=== PATIENT | female | born 1950 | race Caucasian/White ===

== ENCOUNTER → 2016-09-02 | Outpatient (REF) | payer MEDICARE, BC, OTHER ==
[2016-09-02 17:16] LABS: CALCIUM LEVEL 10.5 MG/DL (8.8-10.2); PHOSPHORUS LEVEL 3.8 MG/DL (2.5-4.9)
== END | disposition home or self-care (01) ==
LOC: M LABDRAW1 15:26
PROVIDERS: ATTEND Internal Medicine Endocrinology, Diabetes & Metabolism
DX: E83.52 Hypercalcemia (principal)

== ENCOUNTER → 2016-09-17 | Outpatient (CLI) | payer MEDICARE, BC, OTHER ==
--- NOTE | 2016-09-23 06:59 | RADONC ---
RADIATION ONCOLOGY FOLLOWUP NOTE DATE: 09/17/2016 CHART NUMBER: [id number]. DIAGNOSIS: Right breast cancer. STAGE: IA, [id number]. ECOG PERFORMANCE STATUS: 0 FOLLOWUP NOTE: Ms. Cox is a delightful 66-year-old white female with the diagnosis of a stage IA, [id number], moderately differentiated infiltrating ductal carcinoma of the right breast who is presenting to us today for routine followup visit 7 months post completion of external beam radiation therapy. The patient presents today reporting that she is doing quite well with no complaints at this time related to her radiation therapy or disease. She has no breast or bone pain. REVIEW OF SYSTEMS: The patient's review of systems is noncontributory. She denies nausea, vomiting, fevers, chills, night sweats, diplopia, headaches, anxiety or depression, anorexia, weight loss, visual disturbances, chest pain, urinary or bowel difficulties, bone pain, or neurological problems. PHYSICAL EXAMINATION: The patient is a well-developed, well-nourished white female in no acute distress. HEENT exam is normocephalic, atraumatic. Extraocular movements are intact. There is no palpable cervical, supraclavicular, infraclavicular, axillary, or inguinal lymphadenopathy present. Lungs are clear to auscultation and percussion. Heart has a regular rate and rhythm. Abdomen is benign with no hepatosplenomegaly, masses, or tenderness. Breast examination reveals no masses or discharge bilaterally. Skeletal examination reveals no tenderness to pressure or percussion of the bony skeleton. Extremities reveal no clubbing, cyanosis, or edema. Neurologic exam is grossly intact, as is the remainder of the physical examination. ASSESSMENT: The patient is clinically TYREL at this time and will be seen by me again in 6 months for further followup. She will also continue to be followed by her other physicians as well. cc: Talat Nance MD *Chelsea Mallory MD *SHABANA Gatica
== END ==
LOC: M ONCR 10:44
PROVIDERS: ATTEND Radiology Radiation Oncology
DX: C50.811 Malignant neoplasm of overlapping sites of right female breast (principal)

== ENCOUNTER → 2017-03-25 | Outpatient (CLI) | payer MEDICARE, BC, OTHER ==
--- NOTE | 2017-03-25 09:36 | RADONC ---
RADIATION ONCOLOGY FOLLOWUP NOTE DATE: 03/25/2017 CHART NUMBER: [id number] DIAGNOSIS: Right breast cancer. STAGE: IA, [id number]. ECOG PERFORMANCE STATU: 0. FOLLOWUP NOTE: Ms. Cox is a very pleasant [age]-year-old white female with the diagnosis of a stage IA, A3kP1N2, moderately differentiated infiltrating ductal carcinoma right breast who is presenting to us today for routine followup visit 1 year and 1 month post completion of external beam radiation therapy. The patient presents today reporting that she is doing quite well with no complaints at this time related to her radiation therapy or disease. She has no breast or bone pain. The patient's review of systems is noncontributory. She denies nausea, vomiting, fevers, chills, night sweats, diplopia, headaches, anxiety or depression, anorexia, weight loss, visual disturbances, chest pain, urinary or bowel difficulties, bone pain, or neurological problems. PHYSICAL EXAMINATION: The patient is a well-developed, well-nourished, female in no acute distress. HEENT exam is normocephalic, atraumatic. Extraocular movements are intact. There is no palpable cervical, supraclavicular, infraclavicular, axillary, or inguinal lymphadenopathy present. Lungs are clear to auscultation and percussion. Heart has a regular rate and rhythm. Abdomen is benign with no hepatosplenomegaly, masses, or tenderness. Breast examination reveals no masses or discharge bilaterally. Skeletal examination reveals no tenderness to pressure or percussion of the bony skeleton. Extremities reveal no clubbing, cyanosis, or edema. Neurologic exam is grossly intact, as is the remainder of the physical examination. ASSESSMENT: The patient is clinically TYREL at this time and will be seen by us again in 6 months for further followup. She will also continue be followed by her other physicians as well. cc: MD Chelsea Grossman MD Michael Hinman, PA
== END ==
LOC: M ONCR 08:47
PROVIDERS: ATTEND Radiology Radiation Oncology
DX: C50.811 Malignant neoplasm of overlapping sites of right female breast (principal)

== ENCOUNTER → 2017-05-07 | Outpatient (REF) | payer MEDICARE, BC, OTHER | LOC: M LAB REF 12:59 | PROVIDERS: ATTEND Internal Medicine Medical Oncology | DX: C50.919 Malignant neoplasm of unspecified site of unspecified female breast (principal) ==

== ENCOUNTER → 2017-09-16 | Outpatient (CLI) | payer MEDICARE, BC, OTHER | LOC: M ONCR 09:12 | DX: C50.811 Malignant neoplasm of overlapping sites of right female breast (principal) | CPT/HCPCS: G0463 ==

== ENCOUNTER → 2017-11-05 | Outpatient (REF) | payer MEDICARE, BC, OTHER ==
[2017-11-05 13:55] LABS: TOTAL 25(OH) VITAMIN D 51.8 NG/ML (30.0-100.0)
== END ==
LOC: M LAB REF 13:23
DX: C50.919 Malignant neoplasm of unspecified site of unspecified female breast (principal)
CPT/HCPCS: 82306

== ENCOUNTER → 2018-03-24 | Outpatient (CLI) | payer MEDICARE, BC, OTHER | LOC: M ONCR 09:26 | DX: C50.811 Malignant neoplasm of overlapping sites of right female breast (principal) | CPT/HCPCS: G0463 ==

== ENCOUNTER → 2018-09-29 | Outpatient (CLI) | payer MEDICARE, BC, OTHER ==
[~2018-09-29] MED LIST: AMLO5TAB6 PO; ANAS1TAB2 PO; ASPI1TAB PO; ATOR1TAB21 PO; OLME40TA PO; VITA500T PO
--- NOTE | 2018-10-04 10:13 | RADONC ---
RADIATION ONCOLOGY FOLLOWUP NOTE DATE: 09/29/2018 CHART NUMBER: [id number] DIAGNOSIS: Right breast cancer. STAGE: Stage I A, [id number]. ECOG PERFORMANCE STATUS: 0. FOLLOWUP NOTE: Ms. Cox is a very pleasant 69-year-old white female with the diagnosis of a stage I A, N0xC0P3, moderately differentiated infiltrating ductal carcinoma of the right breast who is presenting to us today for routine followup visit 2 years and 8 months post completion of external beam radiation therapy. The patient presents today reporting that she is doing quite well with no complaints at this time related to her radiation therapy or disease. She has no breast or bone pain. The patient's review of systems is noncontributory. Denies nausea, vomiting, fevers, chills, night sweats, diplopia, headaches, anxiety or depression, anorexia, weight loss, visual disturbances, chest pain, urinary or bowel difficulties, bone pain, or neurological problems. PHYSICAL EXAMINATION: The patient is a well-developed, well-nourished female in no acute distress. HEENT exam is normocephalic, atraumatic. Extraocular movements are intact. There is no palpable cervical, supraclavicular, infraclavicular, axillary, or inguinal lymphadenopathy present. Lungs are clear to auscultation and percussion. Heart has a regular rate and rhythm. Abdomen is benign with no hepatosplenomegaly, masses, or tenderness. Breast examination reveals no masses or discharge bilaterally. Skeletal examination reveals no tenderness to pressure or percussion of the bony skeleton. Extremities reveal no clubbing, cyanosis, or edema. Neurologic exam is grossly intact, as is the remainder of the physical examination. ASSESSMENT: The patient is clinically TYREL at this time. She is being followed closely by her other physicians and therefore I have discharged her from our followup except on an as needed basis. cc: MD Ricci Sky PA Sara McGee, MD
== END ==
LOC: M ONCR 08:56
PROVIDERS: ATTEND Radiology Radiation Oncology
DX: C50.811 Malignant neoplasm of overlapping sites of right female breast (principal)

== ENCOUNTER → 2020-04-24 | Outpatient (REF) | payer MEDICARE, BC, OTHER ==
[~2020-04-24] MED LIST changes: +AMLO1TAB24 PO; -AMLO5TAB6 PO; -ASPI1TAB PO; +ASPI81TA26 PO; +CALC1TAB30 PO; +CENT1TAB PO; +D31000TA2 PO; +NIACCAP PO; +VITA-243 PO; -VITA500T PO; +VITA500T40 PO
[2020-04-24 17:36] LABS: PERCENT SATURATION 17.6 % (13.2-45.0)
[2020-04-24 17:46] LABS: TOTAL PROTEIN,RANDOM URINE 35.9 MG/DL (0.0-12.0)
[2020-04-24 17:50] LABS: AMORPHOUS SEDIMENT SMALL (NEGATIVE); BACTERIA, URINE AUTO 1+ (NEGATIVE); CALCIUM OXALATE CRYSTALS LARGE; MUCUS, URINE SMALL (NEGATIVE); RBC, URINE AUTO 9 /HPF (0-3); SQUAMOUS EPITHELIAL CELL UR AU 0 /HPF (0-6); WBC, URINE AUTO 132 /HPF (0-3)
== END ==
LOC: M LAB REF 17:04
PROVIDERS: ATTEND Internal Medicine Nephrology
DX: D50.9 Iron deficiency anemia, unspecified (principal); N17.9 Acute kidney failure, unspecified; Z79.899 Other long term (current) drug therapy

== ENCOUNTER → 2021-02-21 | Outpatient (CLI) | payer MEDICARE, BC, OTHER ==
[~2021-02-21] MED LIST changes: +ALEN70TA82 PO
--- NOTE | 2021-02-21 10:19 | REP ---
INDICATION: ABNORMAL EKG MURMUR -OCC HEAVINESS CHEST. COMPARISON: Comparison chest x-ray April 14, 2013. TECHNIQUE: Two views.. FINDINGS: The lungs are hyperinflated but free of infiltrate. Pleural angles are sharp. Cardiomediastinal silhouette is unremarkable. There is no acute bony abnormality. Pulmonary vasculature is not increased. IMPRESSION: Hyperinflation. Otherwise no acute disease.. <Electronically signed by Tarik Woodall > 02/21/21 0643
== END ==
LOC: M WUC 10:01
PROVIDERS: ATTEND Physician Assistant
DX: R01.1 Cardiac murmur, unspecified (principal); R94.31 Abnormal electrocardiogram [ECG] [EKG]

== ENCOUNTER → 2021-03-05 | Outpatient (REF) | payer MEDICARE, BC, OTHER ==
[2021-03-05 18:25] LABS: FERRITIN 176 NG/ML (8-252); IRON (FE) 20 UG/DL (50-170); MAGNESIUM LEVEL 2.4 MG/DL (1.8-2.4); PERCENT SATURATION 7.7 % (13.2-45.0); TOTAL IRON BINDING CAPACITY 260 UG/DL (250-450)
[2021-03-05 18:26] LABS: VITAMIN B12 LEVEL 1900 PG/ML
[2021-03-05 18:35] LABS: FOLATE > 24.0 NG/ML
== END ==
LOC: M LAB REF 16:40
PROVIDERS: ATTEND Internal Medicine Nephrology
DX: D50.9 Iron deficiency anemia, unspecified (principal); N39.0 Urinary tract infection, site not specified; D63.1 Anemia in chronic kidney disease; E83.42 Hypomagnesemia; N18.2 Chronic kidney disease, stage 2 (mild)

== ENCOUNTER → 2021-03-20 | Outpatient (CLI) | payer MEDICARE, BC, OTHER ==
--- NOTE | 2021-03-20 10:10 | REP ---
INDICATION: CALCULUS OF KIDNEY, RENAL FAILURE. COMPARISON: CT 11/23/2015. TECHNIQUE: Real-time sonographic evaluation of the kidneys is performed. FINDINGS: Renal cortical echogenicity pattern is normal bilaterally and contours are smooth. There is moderate right hydronephrosis. There is a calculus in the mid right ureter measuring 18 x 8 x 7 millimeters. Multiple intrarenal calculi are seen bilaterally. Largest on the right is in the lower pole measuring 5 millimeters, the largest on the left is in the upper pole and measures 6 millimeters. There is no left hydronephrosis. The right kidney measures 11.0 x 5.9 x 4.2 cm. Left renal dimensions are 9.4 x 4.6 x 4.7 cm. The urinary bladder is unremarkable. Ureteral jets could not be visualized with Doppler color evaluation. IMPRESSION: Bilateral subcentimeter intrarenal calculi. There is moderate right hydronephrosis. There is a calculus in the mid right ureter 18 x 8 x 7 millimeters. <Electronically signed by Prasanth Stafford > 03/20/21 1007
== END ==
LOC: M RAD 09:26
PROVIDERS: ATTEND Internal Medicine Nephrology
DX: N17.9 Acute kidney failure, unspecified (principal); N20.0 Calculus of kidney

== ENCOUNTER → 2021-03-29 | Outpatient (CLI) | payer MEDICARE, BC, OTHER ==
[2021-03-29 07:01] LABS: HEMATOCRIT 32.3 % (36.0-47.0); HEMOGLOBIN 10.2 g/dl (12.0-15.5); MEAN CORPUSCULAR HEMOGLOBIN 31.3 pg (27.0-33.0); MEAN CORPUSCULAR HGB CONC 31.6 g/dl (32.0-36.5); MEAN CORPUSCULAR VOLUME 99.1 fl (80.0-96.0); PLATELET COUNT, AUTOMATED 309 10^3/uL (150-450); RED BLOOD COUNT 3.26 10^6/uL (4.00-5.40); WHITE BLOOD COUNT 8.9 10^3/uL (4.0-10.0)
[2021-03-29 07:03] LABS: APPEARANCE, URINE HAZY (CLEAR); BACTERIA, URINE AUTO 1+ (NEGATIVE); BILIRUBIN, URINE AUTO NEGATIVE (NEGATIVE); BLOOD, URINE BLOOD 1+ (NEGATIVE); COLOR, URINE YELLOW (YELLOW); GLUCOSE, URINE (UA) AUTO NEGATIVE (NEGATIVE); KETONE, URINE AUTO NEGATIVE (NEGATIVE); LEUKOCYTE ESTERASE, URINE AUTO 3+ (NEGATIVE); MUCUS, URINE SMALL (NEGATIVE); NITRITE, URINE AUTO NEGATIVE (NEGATIVE); PROTEIN, URINE AUTO NEGATIVE (NEGATIVE); RBC, URINE AUTO 7 /HPF (0-3); SPECIFIC GRAVITY URINE AUTO 1.006 (1.002-1.035); SQUAMOUS EPITHELIAL CELL UR AU 0 /HPF (0-6); UROBILINOGEN, URINE AUTO 0.2 mg/dL (0.0-2.0); WBC, URINE AUTO 62 /HPF (0-3)
[2021-03-29 07:16] LABS: INR 1.03; PROTHROMBIN TIME 13.9 SECONDS (12.7-14.5)
[2021-03-29 07:17] LABS: PARTIAL THROMBOPLASTIN TIME 36.7 SECONDS (25.9-37.0)
[2021-03-29 07:28] LABS: CALCIUM LEVEL 10.2 MG/DL (8.8-10.2); CREATININE FOR GFR 1.56 MG/DL (0.55-1.30); GLOMERULAR FILTRATION RATE 34.9 (>39)
--- NOTE | 2021-03-29 08:16 | REP ---
INDICATION: PRE OP TESTING PT HAS LABS AND EKG FIRST COMPARISON: 02/21/2021 TECHNIQUE: PA and lateral. FINDINGS: The mediastinum and cardiac silhouette are normal. The lung denney are clear and without acute consolidation, effusion, or pneumothorax. The skeletal structures are intact and normal. IMPRESSION: No acute cardiopulmonary process. <Electronically signed by Semaj Stockton > 03/29/21 0821
--- NOTE | 2021-03-29 09:05 | ECGEPIP ---
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
== END ==
LOC: M LAB 06:18
PROVIDERS: ATTEND Nurse Practitioner Women's Health
DX: Z01.812 Encounter for preprocedural laboratory examination (principal); Z20.822 Contact with and (suspected) exposure to COVID-19; Z79.899 Other long term (current) drug therapy

== ENCOUNTER → 2021-04-01 | Outpatient (CLI) | payer MEDICARE, BC, OTHER ==
--- NOTE | 2021-04-01 13:36 | REP ---
INDICATION: URETERAL STONE W/ HYDRONEPHROSIS COMPARISON: Comparison CT study November 23, 2015. TECHNIQUE: Helical scanning is acquired and 3 mm axial images were reformatted. Coronal and sagittal MPR images were generated and reviewed. FINDINGS: Preliminary digital enterprise mobility architect radiograph demonstrates an unremarkable bowel gas pattern. There is a levoconvex lumbar scoliotic curvature. Gallstones are noted projecting in the right upper quadrant. On axial CT images, there is a 1.4 cm densely calcified benign granuloma in the right lower lobe. There are 2 other nodules 1 of which is calcified in the right lower lobe. The noncalcified nodule measures 8 mm in greatest diameter. The left lung base is clear. There is no evidence of pleural effusion or upper abdominal ascites. The liver and the spleen are normal in size homogeneous in texture. There are densely calcified gallstones in the dependent portion the gallbladder. In addition, there is a focal calcification which appears to be within the lumen of the common bile duct consistent with choledocholithiasis. No abnormality is noted in the pancreas. Normal adrenal glands are observed. There is bilateral intrarenal nephrolithiasis with multiple stones in each kidney at the corticomedullary junction consistent with collecting system calculi. There is moderate to marked right-sided hydronephrosis. The right kidney is enlarged in association with this. The right ureter is moderately dilated and can be traced to the superior aspect of the right true pelvis where there is a 13 mm obstructing ureteral calculus in the ureter. No bladder calculus is seen. No left ureteral stone is seen. No left-sided hydronephrosis is noted. No uterine or ovarian abnormality is seen. The appendix is surgically absent. IMPRESSION: 1. Moderate to marked right-sided hydronephrosis due to a large, 13 mm, obstructing calculus in the right the mid to distal ureter. 2. Bilateral numerous intrarenal nephrolithiasis. 3. Cholelithiasis. 4. Choledocholithiasis suspected with mildly prominent common bile duct. Granulomatous nodules in the right lower lobe. These are all present and visible in retrospect on the November 23, 2015 prior study and are felt to be benign. <Electronically signed by Tarik Woodall > 04/01/21 [id number]
== END ==
LOC: M RAD 10:54
PROVIDERS: ATTEND Nurse Practitioner Women's Health
DX: N20.1 Calculus of ureter (principal)

== ENCOUNTER → 2021-05-01 | Outpatient (CLI) | payer MEDICARE, BC, OTHER ==
[~2021-05-01] MED LIST changes: +FERR32TA PO
--- NOTE | 2021-05-01 08:12 | REP ---
INDICATION: OTH SYMPTOMS AND SIGNS INVOLVING THE CIRC AND RESP COMPARISON: None. TECHNIQUE: Real-time ultrasound evaluation and duplex Doppler interrogation of the extracranial carotid vasculature is performed. FINDINGS: Antegrade flow is observed in both vertebral arteries. Right carotid: The right common carotid artery shows diffuse intimal thickening but is otherwise unremarkable. There ismild mixed plaquing in the right carotid bulb and proximal ICA on two-dimensional scanning. Color flow and spectral Doppler interrogation are unremarkable on the right. Velocity chart right carotid: Right CCA PSV: 56 cm/S Right ICA PSV: 66 cm/S Right ICA EDV: 24 cm/S Right ECA PSV: 56 cm/S Right ICA/CCA ratio: 1.2 Left carotid: The left common carotid artery shows diffuse intimal thickening but is otherwise unremarkable. There is mild mixed plaquing in the left carotid bulb and proximal ICA on two-dimensional scanning. Color flow and spectral Doppler interrogation are unremarkable on the left. Velocity chart left carotid: Left CCA PSV: 71 cm/S Left ICA PSV: 81 cm/S Left ICA EDV: 20 cm/S Left ECA PSV: 82 cm/S Left ICA/CCA ratio: 1.2 IMPRESSION: Less than 50% category narrowing in the right internal carotid artery by Doppler velocity criteria. Less than 50% category narrowing in the left ICA by Doppler velocity criteria. <Electronically signed by Tarik Woodall > 05/01/21 [id number]
== END ==
LOC: M RAD 07:11
PROVIDERS: ATTEND Internal Medicine Cardiovascular Disease
DX: R09.89 Other specified symptoms and signs involving the circulatory and respiratory systems (principal)

== ENCOUNTER → 2021-05-27 | Outpatient (CLI) | payer MEDICARE, BC, OTHER | LOC: M LABSMTC 10:43 | PROVIDERS: ATTEND Anesthesiology | DX: Z11.52 Encounter for screening for COVID-19 (principal); Z20.822 Contact with and (suspected) exposure to COVID-19 ==

== ENCOUNTER → 2021-05-28 | Outpatient (CLI) | payer MEDICARE, BC, OTHER | LOC: M PLALAB 11:46 | PROVIDERS: ATTEND Urology | DX: N13.2 Hydronephrosis with renal and ureteral calculous obstruction (principal); N39.0 Urinary tract infection, site not specified ==

== ENCOUNTER 2021-05-31 06:10 | Day surgery (SDC) | payer MEDICARE, BC, OTHER ==
[~2021-05-31] VITALS: Ht 165.1 cm; Wt 51.7 kg
[2021-05-31] MEDS ORDERED: LR 1,000 ML IV ONE (06:30)
[2021-05-31] MEDS ORDERED: fentaNYL 100 MCG/2 ML INJECTION (J3010) As Ordered ONE (07:02)
[2021-05-31] MEDS ORDERED: CONRAY-60 60% 50ML VIAL (Q9961) As Ordered ONE (07:12)
[2021-05-31] MEDS ORDERED: LIDOCAINE 2% 100MG/5ML SDV (FOR ANES.) As Ordered ONE (07:13)
[2021-05-31] MEDS ORDERED: propofoL 200 MG/20 ML VIAL As Ordered ONE (07:13)
[2021-05-31] MEDS ORDERED: ONDANSETRON 4MG/2ML VIAL As Ordered ONE (07:14)
[2021-05-31] MEDS ORDERED: dexameTHASONE 4 MG/ML 1ML VIAL (J1100 PER 1MG) As Ordered ONE (07:14)
[2021-05-31] MEDS ORDERED: ceFAZolin 2 GM/D5W 50 ML IV BAG (J0690 PER 500MG) As Ordered ONE (07:44)
[2021-05-31] MEDS ORDERED: ACETAMINOPHEN 1000MG 100ML IV BTL (OFIRMEV) (J0131 PER 10MG) As Ordered ONE (08:34)
[2021-05-31] MEDS ORDERED: PERCOCET 5MG/325MG TAB PO PRN (09:40)
[2021-05-31] MEDS ORDERED: oxyCODONE 5MG TAB PO PRN (09:40)
[2021-05-31] MEDS ORDERED: fentaNYL 100 MCG/2 ML INJECTION (J3010) IV PRN (09:40)
[2021-05-31] MEDS ORDERED: ONDANSETRON 4MG/2ML VIAL IV PRN (09:40)
[2021-05-31] MEDS ORDERED: LR 1,000 ML IV SCH (09:40)
--- NOTE | 2021-05-31 09:41 | RO ---
OPERATIVE NOTE DATE OF OPERATION: 05/31/2021 PREOPERATIVE DIAGNOSIS: Right kidney and ureteral stones. POSTOPERATIVE DIAGNOSIS: Right kidney and ureteral stones. PROCEDURES: 1. Cystoscopy. 2. Right ureteroscopy with laser lithotripsy and basket extraction of stones. 3. Right retrograde pyelogram with intraoperative interpretative images. 4. Right ureteral stent placement. SURGEON: José Miguel Moore MD. MOLECULAR GENETIC PATHOLOGIST: None. ANESTHESIA: General. OPERATIVE INDICATIONS: This is a 71-year-old female who was found to have an obstructing approximately 1.2-cm distal right ureteral stone, as well as a few stones inside her kidney. She was brought to the operating room today for treatment. DESCRIPTION OF PROCEDURE: The patient was brought to the operating room and general anesthesia was induced. Culture-specific antibiotics were infused. She was then placed in the dorsal lithotomy position, prepped, and draped in the usual sterile fashion. A rigid cystoscope was inserted into the urethral meatus and advanced into the bladder. A guidewire was advanced up the right collecting system. I went up the right collecting system with a short semi-rigid ureteroscope. Within the distal ureter, the large stone was seen impacted. The stone was fragmented into smaller pieces using a 272 micron laser fiber. Than all of the fragments were removed using a basket. Once I was satisfied that all of the stone fragments were removed from the ureter, a ureteral access sheath was advanced up the right collecting system. I went up the access sheath with a flexible ureteroscope and examined the right kidney thoroughly. The kidney was severely dilated. There was a lot of debris inside the kidney. I was able to find a few small stones, each measuring around 3-4 mm in the middle and lower pole calices. All of the stones were removed using a basket. Once satisfied that all of the stones were removed, a retrograde pyelogram was performed and notable for [id number] right hydronephrosis with no extravasation. I then withdrew the ureteroscope along with the access sheath and no additional stones were seen inside the ureter. I utilized the guidewire to advance a 7-Frisian x 22-32 cm JJ ureteral stent up the right collecting system. The wire was removed and there were adequate curls of the stent in the right renal pelvis and in the bladder. The bladder was then emptied of all fluid. This marked the conclusion of the procedure. The patient was taken out of the dorsal lithotomy position, awakened from anesthesia, and transferred to the recovery room in stable condition. ESTIMATED BLOOD LOSS: 10 mL. COMPLICATIONS: None. SPECIMEN: Kidney stone fragments. PLAN: The patient will follow up in the Urology Clinic in a few weeks for stent removal. SAPNA
[2021-05-31 10:25] VITALS: BP 160/70
--- NOTE | 2021-05-31 11:24 | REP ---
INDICATION: RIGHT CYSTO, URETERAL STENT PLACEMENT. COMPARISON: None. TECHNIQUE: Two C-arm views abdomen and pelvis FINDINGS: Contrast partially opacifies the right pelvocaliceal system. A right ureteral stent is placed, the proximal end is coiled in the right renal pelvis and the distal end in the urinary bladder. IMPRESSION: 25 seconds fluoroscopy time utilized. <Electronically signed by Prasanth Stafford > 05/31/21 [id number]
[2021-06-05 14:09] LABS: CA Oxalate Dihy 50 % (.); Ca Ox Monohydrate 10 % (.); Size 6x5 mm (.)
== END 2021-05-31 10:40 | disposition home or self-care (01) ==
LOC: M SDC 06:10
PROVIDERS: ATTEND Urology
DX: N20.2 Calculus of kidney with calculus of ureter (principal); I11.9 Hypertensive heart disease without heart failure; R01.1 Cardiac murmur, unspecified; R42 Dizziness and giddiness; R94.31 Abnormal electrocardiogram [ECG] [EKG]; I35.0 Nonrheumatic aortic (valve) stenosis; R09.89 Other specified symptoms and signs involving the circulatory and respiratory systems; D64.9 Anemia, unspecified; Z85.3 Personal history of malignant neoplasm of breast; N18.9 Chronic kidney disease, unspecified; Z79.899 Other long term (current) drug therapy; Z79.82 Long term (current) use of aspirin; Z91.040 Latex allergy status; Z88.0 Allergy status to penicillin
CPT/HCPCS: 52356; 74420; 82365; 88300; C1769; C1894; C2617; J0131; J0690; J1100; J2405; J3010; Q9961

== ENCOUNTER → 2021-06-03 | Outpatient (CLI) | payer MEDICARE, BC, OTHER ==
--- NOTE | 2021-06-03 13:07 | DEXAMM ---
INDICATION: OSTEO. COMPARISON: 05/31/2019, as well as other prior exams. TECHNIQUE: Bone density was measured using dual-energy x-ray absorptiometry (DEXA). FINDINGS: AP SPINE L1-L4 BMD 1.031 g/cm2 Young Adult T-Score -1.3 Age Matched Z-Score 0.4. LT FEMUR, TOTAL BMD 0.718 g/cm2 Young Adult T-Score -2.3 Age Matched Z-Score -0.8. LT NECK BMD 0.780 g/cm2 Young Adult T-Score -1.9 Age Matched Z-Score -0.1. RT FEMUR, TOTAL BMD 0.738 g/cm2 Young Adult T-Score -2.1 Age Matched Z-Score -0.6. RT NECK BMD 0.741 g/cm2 Young Adult T-Score -2.1 Age Matched Z-Score -0.4. IMPRESSION: There is low bone density of the spine. There is low bone density of the left hip. There is low bone density of the right hip. The density of the spine has decreased 4.0% since the initial exam on 12/21/2007. The density of the spine decreased 4.4% since most recent exam on 05/31/2019. The density of the left hip has decreased 6.0% since initial exam on 06/04/2011. The density of the left hip has decreased 6.0% since most recent exam on 05/31/2019. The density of the right hip has decreased 2.4% since the initial exam on 09/21/2015. The density of the right hip has decreased 2.4% since the most recent exam on 05/31/2019. FOLLOW-UP: Recommendation for the next bone density exam: 2 years. <Electronically signed by Prasanth Stafford > 06/03/21 [id number]
== END ==
LOC: M WHC 10:49
PROVIDERS: ATTEND Internal Medicine Medical Oncology
DX: M81.0 Age-related osteoporosis without current pathological fracture (principal)

== ENCOUNTER → 2021-12-12 | Outpatient (CLI) | payer MEDICARE, BC, OTHER ==
[~2021-12-12] MED LIST changes: -D31000TA2 PO; +VITA100093 PO
== END ==
LOC: M RAD 07:24
PROVIDERS: ATTEND Urology
DX: N20.0 Calculus of kidney (principal)

== ENCOUNTER → 2021-12-16 | Outpatient (CLI) | payer MEDICARE, BC, OTHER ==
[2021-12-16 08:05] LABS: BASO # 0.1 10^3/uL (0.0-0.2); BASO % 0.9 % (0.0-1.0); EOS # 0.1 10^3/uL (0.0-0.5); EOS % 2.5 % (0.0-3.0); HEMATOCRIT 38.6 % (36.0-47.0); HEMOGLOBIN 12.5 g/dl (12.0-15.5); LYMPH # 2.3 10^3/uL (1.5-5.0); LYMPH % 41.4 % (24.0-44.0); MEAN CORPUSCULAR HEMOGLOBIN 32.4 pg (27.0-33.0); MEAN CORPUSCULAR HGB CONC 32.4 g/dl (32.0-36.5); MONO # 0.5 10^3/uL (0.0-0.8); MONO % 8.8 % (2.0-8.0); NEUTROPHILS # 2.6 10^3/uL (1.5-8.5); NEUTROPHILS % 46.2 % (36.0-66.0); PLATELET COUNT, AUTOMATED 236 10^3/uL (150-450); RED BLOOD COUNT 3.86 10^6/uL (4.00-5.40); WHITE BLOOD COUNT 5.6 10^3/uL (4.0-10.0)
[2021-12-16 08:32] LABS: ALBUMIN 3.9 GM/DL (3.2-5.2); BILIRUBIN,TOTAL 0.5 MG/DL (0.2-1.0); CALCIUM LEVEL 10.6 MG/DL (8.8-10.2); CHOLESTEROL RISK RATIO 2.43 (<5); CREATININE FOR GFR 1.3 MG/DL (0.55-1.30); POTASSIUM SERUM 4.4 MEQ/L (3.5-5.1); TOTAL PROTEIN 7.2 GM/DL (6.4-8.2)
== END ==
LOC: M LAB 07:21
PROVIDERS: ATTEND Internal Medicine Cardiovascular Disease
DX: R94.31 Abnormal electrocardiogram [ECG] [EKG] (principal); I35.0 Nonrheumatic aortic (valve) stenosis; E78.00 Pure hypercholesterolemia, unspecified

== ENCOUNTER → 2022-12-15 | Outpatient (CLI) | payer MEDICARE, BC, OTHER | LOC: M RAD 08:22 | PROVIDERS: ATTEND Urology | DX: N20.0 Calculus of kidney (principal) ==

== ENCOUNTER → 2023-05-25 | Outpatient (CLI) | payer MEDICARE, BC, OTHER ==
[2023-05-25 08:17] LABS: BASO # 0.1 10^3/uL (0.0-0.2); BASO % 0.9 % (0.0-1.0); EOS # 0.1 10^3/uL (0.0-0.5); HEMATOCRIT 40.1 % (36.0-47.0); HEMOGLOBIN 13.1 g/dl (12.0-15.5); LYMPH # 1.7 10^3/uL (1.5-5.0); LYMPH % 31.1 % (24.0-44.0); MEAN CORPUSCULAR HEMOGLOBIN 32.8 pg (27.0-33.0); MEAN CORPUSCULAR HGB CONC 32.7 g/dl (32.0-36.5); MEAN CORPUSCULAR VOLUME 100.5 fl (80.0-96.0); MONO # 0.5 10^3/uL (0.0-0.8); MONO % 8.8 % (2.0-8.0); NEUTROPHILS # 3.1 10^3/uL (1.5-8.5); PLATELET COUNT, AUTOMATED 221 10^3/uL (150-450); RED BLOOD COUNT 3.99 10^6/uL (4.00-5.40); WHITE BLOOD COUNT 5.5 10^3/uL (4.0-10.0)
[2023-05-25 14:01] LABS: GLOMERULAR FILTRATION RATE 57.9 (>39)
[2023-05-25 14:02] LABS: CALCIUM LEVEL 10.1 MG/DL (8.8-10.2); POTASSIUM SERUM 4.2 MEQ/L (3.6-5.0)
== END ==
LOC: M LAB 07:29
PROVIDERS: ATTEND Internal Medicine Cardiovascular Disease
DX: I35.0 Nonrheumatic aortic (valve) stenosis (principal)

== ENCOUNTER → 2023-08-14 | Outpatient (REF) | payer MEDICARE, BC, OTHER ==
[2023-08-14 13:18] LABS: HEMOGLOBIN 13.2 g/dl (12.0-15.5); MEAN CORPUSCULAR HEMOGLOBIN 32.8 pg (27.0-33.0); MEAN CORPUSCULAR HGB CONC 32.2 g/dl (32.0-36.5); PLATELET COUNT, AUTOMATED 243 10^3/uL (150-450); RED BLOOD COUNT 4.02 10^6/uL (4.00-5.40); WHITE BLOOD COUNT 6.3 10^3/uL (4.0-10.0)
[2023-08-14 13:20] LABS: ALBUMIN 3.9 G/DL (3.2-5.2); BILIRUBIN,TOTAL 0.6 MG/DL (0.3-1.2); CALCIUM LEVEL 9.6 MG/DL (8.3-10.6); CHOLESTEROL RISK RATIO 2.39 (<5); CREATININE FOR GFR 1.08 MG/DL (0.55-1.30); GLOMERULAR FILTRATION RATE 52.9 (>39); HDL CHOLESTEROL 74.2 MG/DL (>40); LDL CHOLESTEROL 88.8 MG/DL (<100); NON-HDL-C 103.8 MG/DL; POTASSIUM SERUM 4.4 MMOL/L (3.5-5.1); TOTAL PROTEIN 6.6 G/DL (5.7-8.2)
[2023-08-14 13:23] LABS: THYROID STIMULATING HORMONE 1.527 uIU/ML (0.55-4.78)
== END ==
LOC: M LAB REF 12:23
PROVIDERS: ATTEND Physician Assistant
DX: I10 Essential (primary) hypertension (principal); E78.5 Hyperlipidemia, unspecified

== ENCOUNTER → 2023-12-31 | Outpatient (CLI) | payer MEDICARE, OTHER, BC | LOC: M PLAIMG 14:45 | PROVIDERS: ATTEND Physician Assistant | DX: N20.0 Calculus of kidney (principal) ==

== ENCOUNTER → 2024-03-07 | Outpatient (CLI) | payer MEDICARE, OTHER, BC ==
[2024-03-07 13:08] LABS: CHOLESTEROL RISK RATIO 2.66 (<5); LDL CHOLESTEROL 96.4 MG/DL (<100)
== END ==
LOC: M WUC 09:52
PROVIDERS: ATTEND Physician Assistant
DX: E78.5 Hyperlipidemia, unspecified (principal)

== ENCOUNTER → 2024-05-17 | Outpatient (CLI) | payer MEDICARE, OTHER, BC ==
[2024-05-17 08:21] LABS: BASO % 0.7 % (0.0-1.0); EOS # 0.1 10^3/uL (0.0-0.5); EOS % 1.8 % (0.0-3.0); HEMATOCRIT 39.9 % (36.0-47.0); LYMPH # 1.6 10^3/uL (1.5-5.0); LYMPH % 27.3 % (24.0-44.0); MEAN CORPUSCULAR HEMOGLOBIN 32.6 pg (27.0-33.0); MEAN CORPUSCULAR HGB CONC 32.6 g/dl (32.0-36.5); MONO # 0.5 10^3/uL (0.0-0.8); MONO % 8.7 % (2.0-8.0); NEUTROPHILS # 3.7 10^3/uL (1.5-8.5); NEUTROPHILS % 61.2 % (36.0-66.0); PLATELET COUNT, AUTOMATED 267 10^3/uL (150-450); RED BLOOD COUNT 3.99 10^6/uL (4.00-5.40)
[2024-05-17 08:47] LABS: ALBUMIN 3.7 G/DL (3.2-5.2); CALCIUM LEVEL 10.6 MG/DL (8.3-10.6); CREATININE FOR GFR 1.02 MG/DL (0.55-1.30); GLOMERULAR FILTRATION RATE 56.4 (>39); PHOSPHORUS LEVEL 3.4 MG/DL (2.4-5.1); POTASSIUM SERUM 4.6 MMOL/L (3.5-5.1)
== END ==
LOC: M LAB 07:39
PROVIDERS: ATTEND Internal Medicine Cardiovascular Disease
DX: I35.0 Nonrheumatic aortic (valve) stenosis (principal)

== ENCOUNTER → 2024-10-06 | Outpatient (CLI) | payer MEDICARE, OTHER, BC | LOC: M PLAIMG 05-10 12:16 → M CARPUL 16:54 | PROVIDERS: ATTEND Internal Medicine Cardiovascular Disease | DX: I35.0 Nonrheumatic aortic (valve) stenosis (principal) ==

== ENCOUNTER → 2024-10-06 | Outpatient (CLI) | payer MEDICARE, OTHER, BC | LOC: M CARPUL 16:54 | PROVIDERS: ATTEND Registered Nurse | DX: I35.0 Nonrheumatic aortic (valve) stenosis (principal) ==

== ENCOUNTER → 2024-12-02 | Outpatient (CLI) | payer MEDICARE, OTHER | LOC: M WHC 11:02 | PROVIDERS: ATTEND Nurse Practitioner Women's Health | DX: Z12.31 Encounter for screening mammogram for malignant neoplasm of breast (principal); M81.0 Age-related osteoporosis without current pathological fracture ==

== ENCOUNTER → 2025-05-04 | Outpatient (CLI) | payer MEDICARE, OTHER ==
[2025-05-04 18:20] LABS: CHOLESTEROL LEVEL 230.0 MG/DL (<200); CHOLESTEROL RISK RATIO 2.82 (<5); LDL CHOLESTEROL 129.5 MG/DL (<100); NON-HDL-C 148.7 MG/DL; TRIGLYCERIDES LEVEL 96.0 MG/DL (<150)
== END ==
LOC: M WUC 13:18
PROVIDERS: ATTEND Nurse Practitioner Family
DX: I10 Essential (primary) hypertension (principal)